=== PATIENT | female | born 1985 | race Caucasian/White ===

== ENCOUNTER 2017-12-11 19:52 | Emergency (ER) | payer OTHER ==
[2017-12-11] MEDS ORDERED: BUFFERED LIDOCAINE 10 ML SYRINGE SUBQ STA (21:03)
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
[2017-12-11 21:15] VITALS: BP 126/76
--- NOTE | 2017-12-11 22:01 | CT Report ---
Procedure Date: 12/11/2017 Accession Number: [id number] / [id number] Procedure: CT - Head W/O CPT Code: FULL RESULT: EXAM: CT HEAD WITHOUT CONTRAST. EXAM DATE: 12/11/2017 09:23 PM. CLINICAL HISTORY: Head laceration after trauma. COMPARISON: None. TECHNIQUE: Multiaxial CT images were obtained from the foramen magnum to the vertex. Reformats: Coronal. IV contrast: None. In accordance with CT protocol optimization, one or more of the following dose reduction techniques were utilized for this exam: automated exposure control, adjustment of mA and/or KV based on patient size, or use of iterative reconstructive technique. FINDINGS: Parenchyma: No intraparenchymal hemorrhage. No evidence of mass, midline shift, or CT findings of infarction. Taylor-white differentiation is distinct. Extraaxial Spaces: Normal for age. No subdural or epidural collections identified. Ventricles: Normal in size and position. Sinuses and Orbits: Imaged paranasal sinuses, orbits, and mastoids show no significant abnormality. Bones: No evidence of fracture or calvarial defect. Other: Frontal scalp laceration with skin jesus noted. No unexpected radiopaque foreign bodies. IMPRESSION: 1. Frontal scalp laceration. No unexpected radiopaque foreign bodies. 2. No acute intracranial abnormality. RADIA
== END 2017-12-11 22:09 | disposition home or self-care (01) ==
LOC: ED 19:52
DX: S01.01XA Laceration without foreign body of scalp, initial encounter (principal); W20.8XXA Other cause of strike by thrown, projected or falling object, initial encounter; Y93.89 Activity, other specified; Y99.8 Other external cause status
CPT/HCPCS: 12002; 70450; 99283

== ENCOUNTER 2019-07-07 09:02 | Emergency (ER) | payer OTHER ==
[2019-07-07 09:11] VITALS: BP 137/78
--- NOTE | 2019-07-07 09:44 | ED Physician Documentation ---
PD HPI URI - Stated complaint Stated Complaint: COUGH/CONGESTION - Chief complaint Chief Complaint: Heent - History obtained from History obtained from: Patient - History of Present Illness Timing - onset: Yesterday Timing duration: Days (2) Timing details: Abrupt onset, Still present Associated symptoms: Nasal congestion, Dry cough. No: Fever, Chills, Dyspnea Contributing factors: Sick contact (her son was sick last week with similar, ill for 4 days. Her is sick as well since yesterday.) Improves by: No: MDI/nebulizer Similar symptoms before: Has not had sx before Review of Systems Constitutional: reports: Myalgias. denies: Fever, Chills Nose: reports: Rhinorrhea / runny nose, Congestion Throat: denies: Sore throat Cardiac: denies: Chest pain / pressure Respiratory: reports: Cough. denies: Wheezing GI: denies: Abdominal Pain : reports: Now EGA (28 weeks). denies: Vaginal bleeding Skin: denies: Rash, Lesions PD PAST MEDICAL HISTORY - Past Medical History Cardiovascular: None Respiratory: Asthma (infrequent need for inhaler. ) Neuro: None Endocrine/Autoimmune: None - Present Medications Home Medications: Ambulatory Orders Medication Instructions Recorded Confirmed Benzonatate [Tessalon Perle] 100 mg PO TID PRN #25 capsule 07/07/19 Cetirizine [ZyrTEC] 10 mg PO DAILY #15 tablet 07/07/19 dexAMETHasone [Decadron] 4 mg PO DAILY #5 tablet 07/07/19 - Allergies Allergies/Adverse Reactions: Allergies Allergy/AdvReac Type Severity Reaction Status Date / Time No Known Drug Allergies Allergy Verified 07/07/19 09:08 PD ED PE NORMAL - Vitals Vital signs reviewed: Yes - General General: Alert and oriented X 3, No acute distress, Well developed/nourished - HEENT HEENT: Ears normal, Moist mucous membranes, Pharynx benign - Neck Neck: Supple, no meningeal sign, No adenopathy - Cardiac Cardiac: RRR, No murmur - Respiratory Respiratory: Clear bilaterally - Abdomen Abdomen: Other (gravid c/w dates above umbilicus. ) - Derm Derm: Normal color, Warm and dry Results - Vitals Vitals: Vital Signs - 24 hr 07/07/19 09:08 Temperature 36.5 C Heart Rate 86 Respiratory 17 Rate Blood Pressure 137/78 H O2 Saturation 96 Oxygen O2 Source Room air PD MEDICAL DECISION MAKING - ED course Complexity details: considered differential (she and her with similar URI/cough symptoms. Their son had it last week and was ill for 3-4 days. ), d/w patient Departure - Departure Disposition: 01 Home, Self Care Clinical Impression: Upper respiratory infection Qualifiers: URI type: unspecified URI Qualified Code(s): J06.9 - Acute upper respiratory infection, unspecified Condition: Stable Record reviewed to determine appropriate education?: Yes Instructions: ED Upper Resp Infec No Abx Tx Follow-Up: Shivam Hogan MD [Primary Care Provider] - Prescriptions: Benzonatate [Tessalon Perle] 100 mg PO TID PRN #25 capsule PRN Reason: Cough Cetirizine [ZyrTEC] 10 mg PO DAILY #15 tablet dexAMETHasone [Decadron] 4 mg PO DAILY #5 tablet Comments: Stay well-hydrated. Tylenol if needed for fevers or pains. Continue your current medications. Add Decadron oral steroid daily for 5 days to reduce bronchial and sinus inflammation. Use benzonatate if needed for cough. Use antihistamine such as cetirizine daily for 7 to 10 days for the congestion. Add Benadryl if needed for congestion. Continue your inhaler 2 puffs 3-4 times a day for the next several days to week. Forms: Activity restrictions Discharge Date/Time: 07/07/19 10:35
[2019-07-07] MEDS ORDERED: DEXAMETHASONE 10 MG/ML VIAL PO STA (10:12)
[2019-07-07] MEDS ORDERED: BENZONATATE 100 MG CAPSULE PO STA (10:12)
[2019-07-07] MEDS ORDERED: CHERRY SYRUP 10 ML UDC PO ONE (10:12)
== END 2019-07-07 10:35 | disposition home or self-care (01) ==
LOC: ED 09:02
DX: O99.513 Diseases of the respiratory system complicating pregnancy, third trimester (principal); J06.9 Acute upper respiratory infection, unspecified; Z3A.28 28 weeks gestation of pregnancy
CPT/HCPCS: 99283; 99284; A9270

== ENCOUNTER 2022-01-07 08:00 | Outpatient (CLI) | payer OTHER | END 2022-01-07 23:59 | disposition home or self-care (01) | LOC: LAB.N 08:00 | PROVIDERS: ATTEND Physician Assistant Medical | DX: N30.00 Acute cystitis without hematuria (principal) | CPT/HCPCS: 87077; 87086; 87181 ==

== ENCOUNTER 2022-05-30 08:00 | Outpatient (CLI) | payer OTHER | END 2022-05-30 23:59 | disposition home or self-care (01) | LOC: LAB.N 08:00 | PROVIDERS: ATTEND Registered Nurse | DX: N30.21 Other chronic cystitis with hematuria (principal) | CPT/HCPCS: 87077; 87086; 87181 ==